=== PATIENT | female | born 1945 | race Caucasian/White ===

== ENCOUNTER 2017-02-17 09:09 | Outpatient (CLI) | payer MEDICARE, OTHER ==
[2017-02-17 10:31] LABS: ALT (SGPT) 15 U/L (8-55); AST (SGOT) 13 U/L (5-34); Albumin 4.3 g/dL (3.4-4.8); Alkaline Phosphatase 51 U/L (40-150); Anion Gap 13 mmol/L (10-20); BUN (Urea Nitrogen) 15 mg/dL (9.8-20.1); Bilirubin, Total 0.6 mg/dL (0.2-1.2); Calc. Creatinine Clearance 0 mL/min (70-130); Calcium 9.9 mg/dL (7.8-10.44); Carbon Dioxide 26 mmol/L (23-31); Cardiac Risk 3.7 (Less than 4.5); Chloride 105 mmol/L (98-107); Cholesterol 182 mg/dl (< 200 Desired); Estimated GFR-MDRD 72; Globulin 3.1 g/dL (2.4-3.5); Glucose 105 mg/dL (83-110); HDL Cholesterol 49 mg/dL (>60 Neg Risk); LDL Cholesterol, Calculated 111 mg/dL; Potassium 4.3 mmol/L (3.5-5.1); Protein, Total 7.4 g/dL (6.0-8.3); Sodium 140 mmol/L (136-145); Triglycerides 112 mg/dL (Less than 150)
[2017-02-17 10:50] LABS: Thyroid Stimulating Hormone 0.8587 uIU/mL (0.35-4.94); Vitamin D, 25 Hydroxy 33.2 ng/ml (> 30.0)
== END 2017-02-17 09:10 | disposition home or self-care (01) ==
LOC: MADLABBHPM 09:09
PROVIDERS: ATTEND Family Medicine
DX: E03.9 Hypothyroidism, unspecified (principal); E55.9 Vitamin D deficiency, unspecified
CPT/HCPCS: 36415; 80053; 80061; 82306; 84443

== ENCOUNTER 2020-03-06 08:27 | Outpatient (CLI) | payer MEDICARE ==
[2020-03-06 09:16] LABS: ALT (SGPT) 17 U/L (8-55); AST (SGOT) 14 U/L (5-34); Albumin 4.5 g/dL (3.4-4.8); Alkaline Phosphatase 63 U/L (40-110); Anion Gap 14 mmol/L (10-20); BUN (Urea Nitrogen) 13 mg/dL (9.8-20.1); Bilirubin, Total 0.5 mg/dL (0.2-1.2); Calc. Creatinine Clearance 0 mL/min (70-130); Calcium 10.4 mg/dL (7.8-10.44); Carbon Dioxide 24 mmol/L (23-31); Cardiac Risk 4.1 (Less than 4.5); Chloride 105 mmol/L (98-107); Cholesterol 230 mg/dl (< 200 Desired); Estimated GFR-MDRD 64; Globulin 3.3 g/dL (2.4-3.5); Glucose 106 mg/dL (83-110); HDL Cholesterol 56 mg/dL (>60 Neg Risk); LDL Cholesterol, Calculated 143 mg/dL; Potassium 4.3 mmol/L (3.5-5.1); Protein, Total 7.8 g/dL (6.0-8.3); Sodium 139 mmol/L (136-145); Triglycerides 156 mg/dL (Less than 150)
[2020-03-06 09:29] LABS: Thyroid Stimulating Hormone 5.2743 uIU/mL (0.35-4.94)
[2020-03-06 18:01] LABS: Vitamin D, 25 Hydroxy 40.7 ng/ml (> 30.0)
== END 2020-03-06 08:28 | disposition home or self-care (01) ==
LOC: MADLABBHPM 08:27
PROVIDERS: ATTEND Family Medicine
DX: E03.9 Hypothyroidism, unspecified (principal); E78.5 Hyperlipidemia, unspecified; E55.9 Vitamin D deficiency, unspecified; I10 Essential (primary) hypertension
CPT/HCPCS: 36415; 80053; 80061; 82306; 84443